=== PATIENT | male | born 1980 | race Caucasian/White ===

== ENCOUNTER 2016-07-30 13:25 | Emergency (ER) | payer SELFPAY | END 2016-07-30 14:09 | disposition left against medical advice (07) | LOC: ER 13:27 | DX: Z53.21 Procedure and treatment not carried out due to patient leaving prior to being seen by health care provider (principal) ==

== ENCOUNTER 2016-07-30 15:02 | Emergency (ER) | payer SELFPAY ==
--- NOTE | 2016-07-30 15:20 | NUR ---
PT IS NOT IN ED WAITING ROOM, CALLED 3 TIMES. UNABLE TO TRIAGE. WILL TRY AGAIN LATER.
== END 2016-07-30 15:53 | disposition left against medical advice (07) ==
LOC: EDUNIT# 15:02 → ER 15:03
DX: Z53.21 Procedure and treatment not carried out due to patient leaving prior to being seen by health care provider (principal)

== ENCOUNTER 2017-02-02 21:48 | Emergency (ER) | payer MEDICAID ==
[~2017-02-02] VITALS: Ht 175.3 cm; Wt 72.6 kg
--- NOTE | 2017-02-02 21:52 | NUR ---
PT AMBULATORY OT ER BED 11. PRESENTS W/ R HAND PAIN AND SWELLING S/P SHOOTING HEROIN LAST NIGHT. DENIES ANY OTHER COMPLAINTS. AWAITING MD RIOJAS.
--- NOTE | 2017-02-02 22:32 | NUR ---
DR CARDENAS AT BEDSIDE FOR EVAL.
[2017-02-02] MEDS ORDERED: CEPHALEXIN MONOHYDRATE 500 MG CAPSULE PO ONE ×2 (22:53→23:00)
[2017-02-02] MEDS ORDERED: SULFAMETH/TRIMETH 800/160 MG 1 UDTAB TABLET PO ONE ×3 (22:54→23:00)
--- NOTE | 2017-02-02 23:04 | NUR ---
RADIOLOGY AT BEDSIDE FOR R HAND XRAY.
--- NOTE | 2017-02-02 23:38 | NUR ---
Patient discharged to home in stable condition. Written and verbal after care instructions given. Patient verbalizes understanding of instruction.
[2017-02-02 23:39] VITALS: BP 128/77
== END 2017-02-02 23:40 | disposition home or self-care (01) ==
LOC: ER 21:52
DX: L03.113 Cellulitis of right upper limb (principal)
CPT/HCPCS: 73130-TC; A4606; Z7610

== ENCOUNTER 2017-04-20 23:28 | Emergency (ER) | payer MEDICAID ==
[~2017-04-20] VITALS: Ht 170.2 cm; Wt 72.6 kg
--- NOTE | 2017-04-21 00:25 | NUR ---
PT AMBULATORY TO ER BED 1 C/O WOUND TO RIGHT THUMB X 1 WEEK S/P INJECTING HEROIN. PT AOX3 RR EVEN AND UNLABORED. NO SOB NOTED. NAD NOTED. NO NVD AT THIS TIME. PT NOT DIAPHORETIC, WAITING FOR MD RIOJAS.
--- NOTE | 2017-04-21 00:28 | NUR ---
DR. CUTLER AT BEDSIDE FOR EVAL.
[2017-04-21] MEDS ORDERED: VANCOMYCIN 1 GM in IV D5W 250 ML IV ONE (00:30)
[2017-04-21] MEDS ORDERED: VANCOMYCIN 1 GM VIAL ONE (00:49)
--- NOTE | 2017-04-21 01:02 | NUR ---
Patient eloped from facility. ER MD notified.
[2017-04-21 01:04] VITALS: BP 140/66
== END 2017-04-21 01:05 | disposition left against medical advice (07) ==
LOC: ER 23:31
DX: L03.012 Cellulitis of left finger (principal)
CPT/HCPCS: 99281; A4606 ×2; Z7610 ×2; J3370; Z7502

== ENCOUNTER 2017-04-21 01:56 | Emergency (ER) | payer MEDICAID ==
[~2017-04-21] VITALS: Ht 167.6 cm; Wt 72.6 kg
--- NOTE | 2017-04-21 02:09 | NUR ---
BIBSELF C/O RIGHT THUMB WOUND X 1 WEEK. ADMITS TO USING HEROINE. PT AOX3 RR EVEN AND UNLABORED. NO NVD AT THIS TIME. PT PLACED ON MONITOR WAITING FOR MD RIOJAS.
[2017-04-21] MEDS ORDERED: VANCOMYCIN 1 GM VIAL ONE (02:28)
[2017-04-21] MEDS ORDERED: VANCOMYCIN 1 GM in IV D5W 250 ML IV ONE (02:30)
--- NOTE | 2017-04-21 02:44 | NUR ---
LAB AT BEDSIDE FOR BLOOD DRAW
[2017-04-21 03:21] LABS: BASOPHILS # (AUTO) 0.1 /CMM (0.0-0.2); BASOPHILS % (AUTO) 0.7 % (0.0-2.0); EOSINOPHILS # (AUTO) 0.2 /CMM (0.0-0.7); EOSINOPHILS % (AUTO) 2.6 % (0.0-6.0); HEMATOCRIT 40 % (39-51); HEMOGLOBIN 13.3 g/dL (13.5-17.5); LYMPHOCYTES % (AUTO) 26.5 % (20.0-44.0); MEAN CORPUSCULAR HEMOGLOBIN 29 PG (26.0-33.0); MEAN CORPUSCULAR HGB CONC 34 g/dl (31.0-36.0); MEAN CORPUSCULAR VOLUME 87 fL (80-96); MONOCYTES # (AUTO) 0.6 /CMM (0.1-1.30); MONOCYTES % (AUTO) 8.1 % (2.0-12.0); NEUTROPHILS # (AUTO) 4.6 /CMM (1.8-8.9); NEUTROPHILS % (AUTO) 62.1 % (43.0-81.0); PLATELET COUNT (AUTO) 188 /CMM (150-450); RDW COEFFICIENT OF VARIATION 14.3 (11.5-15.0); WHITE BLOOD COUNT (AUTO) 7.5 K/uL (4.3-11.0)
[2017-04-21 03:24] LABS: CALCIUM, SERUM 8.3 mg/dL (8.5-10.1); CREATININE 0.7 mg/dL (0.6-1.3); POTASSIUM 4.2 mmol/L (3.5-5.1)
--- NOTE | 2017-04-21 04:18 | NUR ---
IV removed. Catheter intact and site benign. Pressure and 4x4 applied to site. No bleeding noted. Patient discharged to home in stable condition. Written and verbal after care instructions given. Patient verbalizes understanding of instruction. ambulatory with a steady gait.
[2017-04-21 04:19] VITALS: BP 118/80
== END 2017-04-21 04:19 | disposition home or self-care (01) ==
LOC: ER 01:56
DX: S61.001A Unspecified open wound of right thumb without damage to nail, initial encounter (principal); L08.9 Local infection of the skin and subcutaneous tissue, unspecified; F11.10 Opioid abuse, uncomplicated; X58.XXXA Exposure to other specified factors, initial encounter; Y93.89 Activity, other specified; Y92.89 Other specified places as the place of occurrence of the external cause; Y99.8 Other external cause status
CPT/HCPCS: 36415; 80048; 83605; 85025; 87040 ×2; 96365; 99284; A4606; J3370; Z7610